=== PATIENT | female | born 1945 ===

== ENCOUNTER 2024-01-04 11:12 | Outpatient (CLI) | payer MEDICARE, OTHER | END 2024-01-04 23:59 | disposition short-term general hospital (02) | LOC: EMS 11:12 | DX: R41.82 Altered mental status, unspecified (principal); M25.551 Pain in right hip; R07.1 Chest pain on breathing; M25.511 Pain in right shoulder; V80.010A Animal-rider injured by fall from or being thrown from horse in noncollision accident, initial encounter; Y93.52 Activity, horseback riding; Y92.838 Other recreation area as the place of occurrence of the external cause | CPT/HCPCS: A0425; A0429 ==